=== PATIENT | female | born 1955 | race Caucasian/White ===

== ENCOUNTER 2023-12-30 20:11 | Emergency (ER) | payer OTHER ==
[~2023-12-30] VITALS: Ht 165.1 cm; Wt 72.6 kg
[2023-12-30 21:03] VITALS: BP 153/76; PULSE 78; RESP 18; TEMP 97.7; O2SAT 100
[2023-12-30] MEDS: KETOROLAC 60 MG/2 ML VIAL IM ONE (23:59)
[2023-12-31] MEDS ORDERED: NAPR-54 PO (00:17)
[2023-12-31 00:29] VITALS: BP 153/76; PULSE 78; RESP 18; TEMP 97.7; O2SAT 100
== END 2023-12-31 00:29 | disposition home or self-care (01) ==
LOC: MED 20:11
DX: S93.401A Sprain of unspecified ligament of right ankle, initial encounter (principal); W18.39XA Other fall on same level, initial encounter; Y92.89 Other specified places as the place of occurrence of the external cause; Y93.89 Activity, other specified; Y99.8 Other external cause status
CPT/HCPCS: 73610; 96372; 99283; J1885